=== PATIENT | female | born 1940 | race Caucasian/White ===

== ENCOUNTER 2016-06-25 15:29 | Emergency (ER) | payer MEDICARE, OTHER ==
[2016-06-25] MEDS ORDERED: DIAZEPAM 5 MG/1 ML TUBX IM ONE (15:46)
--- NOTE | 2016-06-25 15:50 | Emergency Department Record ---
History of Present Illness - General Chief complaint: Lower Extremity Pain Stated complaint: RESTLESS LEGS Time Seen by Provider: 06/25/16 15:46 Source: Patient Mode of Arrival: Ambulatory Limitations: No limitations - History of Present Illness Initial comments: 75 yo female presents to ED with a CC of worsening "restless leg syndrome" for the past several weeks. Patient reports that she has taken several medications in the past for her symptoms that have not helped (cinemet, neurontin). Patient reports that she is unable to sleep at night due to her symptoms. Patient has been seeing a neurologist for her symptoms at [facility] (Dr. Chopra), and that her PCP is not actively managing her symptoms. MD Complaint: Other Onset/Timin -: Week(s) Location: Bilateral, Lower Leg History of Same: Yes Quality: Other Consistency: Constant Improves with: Medication Worsens with: Nothing Associated Symptoms: Denies other symptoms - Related Data Home Medications Medication Instructions Recorded Confirmed Last Taken Baclofen 10 mg PO ASDIR 06/25/16 06/25/16 06/25/16 Carbidopa/Levodopa [Sinemet 25-100 1 each PO TID 06/25/16 06/25/16 Unknown mg Tablet] Carbidopa/Levodopa [Sinemet Cr 2 each PO QHS 06/25/16 06/25/16 Unknown 50-200 Tablet] Levothyroxine Sodium [Synthroid] 175 mcg PO DAILY 06/25/16 06/25/16 Unknown Lisinopril [Lisinopril] 5 mg PO DAILY 06/25/16 06/25/16 Unknown Simvastatin [Simvastatin] 10 mg PO DAILY 06/25/16 06/25/16 Unknown Allergies Allergy/AdvReac Type Severity Reaction Status Date / Time Penicillins Allergy RASH Verified 06/25/16 15:39 Travel Screening - Travel/Exposure Within Last 30 Days Have you traveled within the last 30 days?: No Review of Systems Constitutional: Denies: Chills, Fever, Malaise, Night sweats Eyes: Denies: Eye discharge, Eye pain ENT: Denies: Congestion, Ear pain, Epistaxis Respiratory: Denies: Cough, Dyspnea Cardiovascular: Denies: Chest pain, Dyspnea on exertion Endocrine: Denies: Fatigue Gastrointestinal: Denies: Abdominal pain, Nausea, Vomiting Genitourinary: Denies: Dysuria, Frequency, Hematuria Musculoskeletal: Denies: Arthralgia, Back pain, Gout, Joint swelling Skin: Denies: Bruising, Change in color Neurological: Denies: Abnormal gait, Confusion, Headache, Seizure Psychiatric: Denies: Anxiety Hematological/Lymphatic: Denies: Anemia, Blood Clots Past Medical History - SOCIAL HISTORY Smoking Status: Current every day smoker Alcohol Use: None Drug Use: None - RESPIRATORY Hx Respiratory Disorders: No Comment:: lung cancer in 1991 - CARDIOVASCULAR Hx Cardio Disorders: Yes Hx Hypertension: Yes Comment:: high cholesterol - NEURO Hx Neuro Disorders: Yes Comment:: RLS - GI Hx GI Disorders: Yes Hx of Polyps: Yes - Hx Genitourinary Disorders: No - ENDOCRINE Hx Endocrine Disorders: Yes Hx Thyroid Disease: Yes - MUSCULOSKELETAL Hx Musculoskeletal Disorders: No Comment:: chronic low back pain r/t stenosis - PSYCH Hx Psych Problems: No - HEMATOLOGY/ONCOLOGY Hx Hematology/Oncology Disorders: Yes Hx Cancer: Yes Hx Chemotherapy: No (breast & lung) Hx Radiation Therapy: Yes (last 1991) Family Medical History Any Significant Family History?: Yes Hx Alcohol Use: Father, Brother/Sister Hx Cancer: Father, Brother/Sister *Cancer Comment: bladder, lung, breast, stomach/esophagus Hx Diabetes: Grandparents Hx HTN: Mother Physical Exam - General General Appearance: Alert, Oriented x3, Cooperative, Mild distress, Anxious Limitations: No limitations - Head Head exam: Atraumatic, Normocephalic, Normal inspection Head exam detail: negative: Abrasion, Contusion, Pride's sign, General tenderness, Hematoma, Laceration - Eye Eye exam: Normal appearance. negative: Conjunctival injection, Periorbital swelling, Periorbital tenderness, Scleral icterus - ENT Ear exam: negative: Auricular hematoma, Auricular trauma Nasal Exam: negative: Active bleeding, Discharge, Dried blood, Foreign body Mouth exam: negative: Drooling, Laceration, Muffled voice, Tongue elevation - Neck Neck exam: Normal inspection. negative: Meningismus, Tenderness - Respiratory Respiratory exam: Normal lung sounds bilaterally. negative: Respiratory distress, Rhonchi, Stridor, Wheezes - Cardiovascular Cardiovascular Exam: Regular rate, Normal rhythm, Normal heart sounds - GI/Abdominal GI/Abdominal exam: Soft. negative: Rebound, Rigid, Tenderness - Rectal Rectal exam: Deferred - exam: Deferred - Extremities Extremities exam: Other (intermittent, benign tremors on examination). negative : Calf tenderness, Pedal edema, Tenderness - Back Back exam: Denies: CVA tenderness (R), CVA tenderness (L) - Neurological Neurological exam: Alert, Normal gait, Oriented X3 - Psychiatric Psychiatric exam: Anxious, Normal mood - Skin Skin exam: Normal color. negative: Abrasion Type of lesion: negative: abrasion Course Vital Signs 06/25/16 15:32 Temperature 98.1 F Pulse Rate 95 H Respiratory 20 Rate Blood Pressure 167/95 Pulse Ox 98 - Reevaluation(s) Reevaluation #1: 06/25/16 16:48 Patient re-evaluated, reports minimal improvement following Valium 10 mg IM. At this time, patient is asking to go home. Will refill her Carbidopa/Levadopa until her mail-order prescriptions arrive, and prescribe Lyrica for her RLS as well as this improved her symptoms previously. Patient appears stable for discharge at this time. All questions were answered at the time of discharge. Disposition Disposition: Discharge Clinical Impression: Restless leg syndrome Disposition: Home, Self-Care Condition: (2) Stable Instructions: Restless Legs Syndrome (ED) Additional Instructions: Return to ED if your symptoms worsen or if you have any concerns. Carbidopa/Levodopa as perescribed. Lyrica as prescribed. Follow-up with Dr. Walker in 1-3 days as directed. Forms: Patient Portal Access Time of Disposition: 16:44
== END 2016-06-25 16:59 | disposition home or self-care (01) ==
LOC: ER 15:29
DX: G25.81 Restless legs syndrome (principal)
CPT/HCPCS: 96372; 99283; J3360

== ENCOUNTER 2017-05-12 23:47 | Emergency (ER) | payer MEDICARE, OTHER ==
[2017-05-13] MEDS ORDERED: MORPHINE SULFATE 5 MG/ML PFS IVP ONE (00:18)
[2017-05-13] MEDS ORDERED: KETOROLAC 30 MG/ML VIAL IVP ONE (00:18)
[2017-05-13] MEDS ORDERED: PROMETHAZINE HCL 6.25 MG in 0.9 % SODIUM CHLORIDE 100ML 100 ML IVPB ONE (00:18)
--- NOTE | 2017-05-13 00:43 | Emergency Department Record ---
History of Present Illness - General Chief complaint: Pain Stated complaint: R ARM PAIN Time Seen by Provider: 05/13/17 00:08 Source: Patient Mode of Arrival: Ambulatory Limitations: No limitations - History of Present Illness Initial comments: pt is complaining of neck pain that radiates down to her r hand with tingling of 3 of her fingers. she states this all started after she played cards for 2 days. she had an mri in march which she states showed nothing but she states this pain is different MD Complaint: Extremity pain, Other Onset/Timin -: Days(s) Location: Right, Arm History of Same: Yes Radiation: Distal Severity scale (1-10): 7 Quality: Sharp, Stabbing Consistency: Constant, Intermittent, Getting worse Improves with: Rest Worsens with: Exertion, Palpation Associated Symptoms: Denies other symptoms - Related Data Previous Rx's Medication Instructions Recorded Gabapentin [Neurontin] 100 mg PO TID #14 capsule 05/13/17 Allergies Allergy/AdvReac Type Severity Reaction Status Date / Time Penicillins Allergy RASH Verified 06/25/16 15:39 Travel Screening - Travel/Exposure Within Last 30 Days Have you traveled within the last 30 days?: No - Travel Symptoms Symptom Screening: None Review of Systems Reviewed: No additional complaints except as noted below Constitutional: Reports: As per HPI. Denies: Chills, Fever, Malaise, Night sweats, Weakness, Weight change Eyes: Reports: As per HPI. Denies: Eye discharge, Eye pain, Photophobia, Vision change ENT: Reports: As per HPI. Denies: Congestion, Dental pain, Ear pain, Epistaxis , Hearing loss, Throat pain Respiratory: Reports: As per HPI. Denies: Cough, Dyspnea, Hemoptysis, Stridor, Wheezes Cardiovascular: Reports: As per HPI. Denies: Arrhythmia, Chest pain, Dyspnea on exertion, Edema, Murmurs, Orthopnea, Palpitations, Paroxysmal nocturnal dyspnea, Rheumatic Fever, Syncope Endocrine: Reports: As per HPI. Denies: Fatigue, Heat or cold intolerance, Polydipsia, Polyuria Gastrointestinal: Reports: As per HPI. Denies: Abdominal pain, Constipation, Diarrhea, Hematemesis, Hematochezia, Melena, Nausea, Vomiting Genitourinary: Reports: As per HPI. Denies: Abnormal menses, Discharge, Dyspareunia, Dysuria, Frequency, Hematuria, Incontinence, Retention, Urgency Musculoskeletal: Reports: As per HPI. Denies: Arthralgia, Back pain, Gout, Joint swelling, Myalgia, Neck pain Skin: Reports: As per HPI. Denies: Bruising, Change in color, Change in hair/ nails, Lesions, Pruritus, Rash Neurological: Reports: As per HPI. Denies: Abnormal gait, Confusion, Headache, Numbness, Paresthesias, Seizure, Tingling, Tremors, Vertigo, Weakness Psychiatric: Reports: As per HPI. Denies: Anxiety, Auditory hallucinations, Depression, Homicidal thoughts, Suicidal thoughts, Visual hallucinations Hematological/Lymphatic: Reports: As per HPI. Denies: Anemia, Blood Clots, Easy bleeding, Easy bruising, Swollen glands Past Medical History - SOCIAL HISTORY Smoking Status: Heavy tobacco smoker (>10/day) Alcohol Use: Rare Drug Use: None - RESPIRATORY Hx Respiratory Disorders: No Comment:: lung cancer in 1991 - CARDIOVASCULAR Hx Cardio Disorders: Yes Hx Hypertension: Yes Comment:: high cholesterol - NEURO Hx Neuro Disorders: Yes Comment:: RLS - GI Hx GI Disorders: Yes Hx of Polyps: Yes - Hx Genitourinary Disorders: No - ENDOCRINE Hx Endocrine Disorders: Yes Hx Thyroid Disease: Yes - MUSCULOSKELETAL Hx Musculoskeletal Disorders: No Comment:: chronic low back pain r/t stenosis - PSYCH Hx Psych Problems: No - HEMATOLOGY/ONCOLOGY Hx Hematology/Oncology Disorders: Yes Hx Cancer: Yes Hx Chemotherapy: No (breast & lung) Hx Radiation Therapy: Yes (last 1991) Family Medical History Any Significant Family History?: Yes Hx Alcohol Use: Father, Brother/Sister Hx Cancer: Father, Brother/Sister *Cancer Comment: bladder, lung, breast, stomach/esophagus Hx Diabetes: Grandparents Hx HTN: Mother Physical Exam - General General Appearance: Alert, Oriented x3, Cooperative, Mild distress - Head Head exam: Normal inspection - Eye Eye exam: Normal appearance, PERRL, EOMI Pupils: Normal accommodation - ENT ENT exam: Normal exam, Mucous membranes moist, Normal external ear exam, Normal orophraynx Ear exam: Normal external inspection. negative: External canal tenderness Nasal Exam: Normal inspection. negative: Discharge, Sinus tenderness Mouth exam: Normal external inspection, Tongue normal Teeth exam: Normal inspection. negative: Dental caries Throat exam: Normal inspection. negative: Tonsillar erythema, Tonsillar exudate - Neck Neck exam: Tenderness, Other (reproducible pain in r scm muscle). negative: Full ROM - Respiratory Respiratory exam: Normal lung sounds bilaterally. negative: Respiratory distress - Cardiovascular Cardiovascular Exam: Regular rate, Normal rhythm, Normal heart sounds - GI/Abdominal GI/Abdominal exam: Soft, Normal bowel sounds. negative: Tenderness - Rectal Rectal exam: Deferred - exam: Deferred - Extremities Extremities exam: Normal inspection, Full ROM, Normal capillary refill. negative: Tenderness - Back Back exam: Reports: Normal inspection, Full ROM. Denies: Muscle spasm, Rash noted, Tenderness - Neurological Neurological exam: Alert, CN II-XII intact, Normal gait, Oriented X3, Other ( tingling in 2,3,4 finger) - Psychiatric Psychiatric exam: Normal affect, Normal mood - Skin Skin exam: Dry, Intact, Normal color, Warm Course Vital Signs 05/12/17 05/12/17 23:51 23:59 Temperature 97.7 F Pulse Rate [ 70 Pulse Ox Probe] Respiratory 22 Rate Blood Pressure 150/76 [Right Arm] Pulse Ox 98 - Reevaluation(s) Reevaluation #1: 05/13/17 01:17 pt feels much better Disposition Disposition: Discharge Clinical Impression: Cervical radiculopathy Disposition: Home, Self-Care Condition: (1) Good Instructions: Cervical Radiculopathy (ED) Additional Instructions: follow up with family doctor. return sooner if worse. motrin with food. ice and moist heat to neck Prescriptions: Gabapentin [Neurontin] 100 mg PO TID #14 capsule Forms: Patient Portal Access Quality - Quality Measures Quality Measures: N/A - Blood Pressure Screening Does Patient Have Any of the Following: Active Dx of HTN Blood Pressure Classification: Hypertensive Reading Systolic Measurement: 150 Diastolic Measurement: 76 Screening for High Blood Pressure: Patient Exclusion, Hx of HTN [G9744]
[2017-05-13] MEDS ORDERED: GABAPENTIN 100 MG CAPSULE PO SCH (01:15)
--- NOTE | 2017-05-13 09:48 | CT SCAN REPORT ---
EXAM: CT OF THE CERVICAL SPINE WITHOUT CONTRAST HISTORY: NECK PAIN. TECHNIQUE: Sequential axial images were obtained through the cervical spine without intravenous contrast administration. Sagittal and coronal reformatted images were performed. FINDINGS: No evidence of fracture, subluxation or perched facet. Mild osteopenia. Mild degenerative change at C5-C6 and C6-C7 levels. There is mild neural foraminal narrowing at these levels. IMPRESSION: 1. SMALL FOCAL AREAS OF LUCENCY THROUGHOUT THE CERVICAL SPINE LIKELY RELATED TO OSTEOPENIA. LYTIC PROCESS NOT ENTIRELY EXCLUDED. 2. MILD DEGENERATIVE CHANGE AT C5-C6 AND C6-C7 LEVELS. THIS PRODUCES BILATERAL NEURAL FORAMINAL NARROWING. JOB NUMBER: [id number] [facility]
== END 2017-05-13 01:30 | disposition home or self-care (01) ==
LOC: ER 23:47
DX: M54.12 Radiculopathy, cervical region (principal); I10 Essential (primary) hypertension; F17.210 Nicotine dependence, cigarettes, uncomplicated
CPT/HCPCS: 99284 ×2; 96365; 96375; 72125; J1885; J2270; J2550

== ENCOUNTER 2018-03-28 19:58 | Observation (INO) | payer MEDICARE, OTHER ==
--- NOTE | 2018-03-28 20:10 | Emergency Department Record ---
History of Present Illness - General Chief Complaint: Recheck - Other Stated Complaint: NEED DARSHANA CHECKED, SENT BY HER DR Time Seen by Provider: 03/28/18 20:02 Source: Patient Mode of arrival: Ambulatory Limitations: No limitations - History of Present Illness Initial Comments: 77 yo female presents to ED for evaluation of her INR. Patient reports that her PCP called her and told her to come to the ED for evaluation as it was high. Patient reports that she was recently started on Coumadin for "blood clots in the chest". Patient denies bleeding with bruising her teeth, blood in the stool, headache symptoms or head injury, or hematuria symptoms. MD Complaint: Abnormal lab Onset/Timin -: Days(s) Description of Abnormal Result: High INR Symptoms Since Prior Visit: No new symptoms Associated Symptoms: None - Related Data Home Medications Medication Instructions Recorded Confirmed Last Taken Warfarin Sodium 5 mg PO DAILY 03/28/18 03/28/18 Unknown Allergies Allergy/AdvReac Type Severity Reaction Status Date / Time Penicillins Allergy RASH Verified 06/25/16 15:39 Review of Systems Constitutional: Denies: Chills, Fever, Malaise, Night sweats Eyes: Denies: Eye discharge, Eye pain ENT: Denies: Congestion, Ear pain, Epistaxis Respiratory: Denies: Cough, Dyspnea Cardiovascular: Denies: Chest pain, Dyspnea on exertion Endocrine: Denies: Fatigue, Heat or cold intolerance Gastrointestinal: Denies: Abdominal pain, Nausea, Vomiting Genitourinary: Denies: Hematuria, Incontinence, Retention Musculoskeletal: Denies: Arthralgia, Back pain Skin: Denies: Bruising, Change in color Neurological: Denies: Abnormal gait, Confusion, Headache, Seizure Psychiatric: Denies: Anxiety Hematological/Lymphatic: Reports: Blood Clots, Easy bleeding, Easy bruising. Denies: Anemia Past Medical History - SOCIAL HISTORY Smoking Status: Heavy tobacco smoker (>10/day) Drug Use: None - RESPIRATORY Hx Respiratory Disorders: No Comment:: lung cancer in 1991 - CARDIOVASCULAR Hx Cardio Disorders: Yes Hx Hypertension: Yes Comment:: high cholesterol - NEURO Hx Neuro Disorders: Yes Comment:: RLS - GI Hx GI Disorders: Yes Hx of Polyps: Yes - Hx Genitourinary Disorders: No - ENDOCRINE Hx Endocrine Disorders: Yes Hx Thyroid Disease: Yes - MUSCULOSKELETAL Hx Musculoskeletal Disorders: No Comment:: chronic low back pain r/t stenosis - PSYCH Hx Psych Problems: No - HEMATOLOGY/ONCOLOGY Hx Hematology/Oncology Disorders: Yes Hx Cancer: Yes Hx Chemotherapy: No (breast & lung) Hx Radiation Therapy: Yes (last 1991) Family Medical History Hx Alcohol Use: Father, Brother/Sister Hx Cancer: Father, Brother/Sister *Cancer Comment: bladder, lung, breast, stomach/esophagus Hx Diabetes: Grandparents Hx HTN: Mother Physical Exam - General General Appearance: Alert, Oriented x3, Cooperative, No acute distress Limitations: No limitations - Head Head exam: Atraumatic, Normocephalic, Normal inspection Head exam detail: negative: Abrasion, Contusion, Pride's sign, General tenderness, Hematoma, Laceration - Eye Eye exam: Normal appearance. negative: Conjunctival injection, Periorbital swelling, Periorbital tenderness, Scleral icterus - ENT Ear exam: negative: Auricular hematoma, Auricular trauma Nasal Exam: negative: Active bleeding, Discharge, Dried blood, Foreign body Mouth exam: negative: Drooling, Laceration, Muffled voice, Tongue elevation - Neck Neck exam: Normal inspection. negative: Meningismus, Tenderness - Respiratory Respiratory exam: Normal lung sounds bilaterally. negative: Rales, Respiratory distress, Rhonchi, Stridor - Cardiovascular Cardiovascular Exam: Regular rate, Normal rhythm, Normal heart sounds - GI/Abdominal GI/Abdominal exam: Soft. negative: Rebound, Rigid, Tenderness - Rectal Rectal exam: Deferred - exam: Deferred - Extremities Extremities exam: Normal inspection. negative: Pedal edema, Tenderness - Back Back exam: Denies: CVA tenderness (R), CVA tenderness (L) - Neurological Neurological exam: Alert, Normal gait, Oriented X3 - Psychiatric Psychiatric exam: Normal affect, Normal mood - Skin Skin exam: Normal color. negative: Abrasion Type of lesion: negative: abrasion Course Vital Signs 03/28/18 20:03 Temperature 98.0 F Pulse Rate [ 96 H Pulse Ox Probe] Respiratory 16 Rate Blood Pressure 91/64 [Left Arm] Pulse Ox 95 - Reevaluation(s) Reevaluation #1: 03/28/18 20:50 Laboratory studies reviewed, CBC appears normal. INR 9.4. Vitamin K 5 mg ordered, will admit for observation and reassessment of the INR in the morning. Case was discussed with Jessica Juan, will accept admission at this time. Medical Decision Making - Lab Data Result diagrams: 03/28/18 20:18 Disposition Disposition: Admit Clinical Impression: Warfarin-induced coagulopathy Disposition: Still a Patient at [facility] Decision to Admit: Admit from ER Decision to Admit Date: 03/28/18 Decision to Admit Time: 20:53 Condition: (2) Stable Forms: Patient Portal Access Time of Disposition: 20:53 Quality - Quality Measures Quality Measures: N/A - Blood Pressure Screening Does Patient Have Any of the Following: No Blood Pressure Classification: Normal BP Reading Systolic Measurement: 91 Diastolic Measurement: 64 Screening for High Blood Pressure: < Normal BP, F/U Not Required > [G8783]
[2018-03-28 20:24] LABS: HEMATOCRIT 37.4 % (35.0-47.0); HEMOGLOBIN 12.2 gm/dl (11.6-16.0); MEAN CORPUSCULAR HGB CONC 32.6 g/dl (32-36); MEAN PLATELET VOLUME 9.2 fl (7.4-10.4); PLATELET COUNT 316 K/uL (130-400); RED CELL DISTRIBUTION WIDTH 14.7 % (11.5-14.5); WHITE BLOOD COUNT W/O DIFF 5.3 K/uL (4.2-12.2)
[2018-03-28 20:44] LABS: INR 9.4; PROTHROMBIN TIME (PATIENT) 89.2 SECONDS (9.5-12.1)
[2018-03-28] MEDS ORDERED: PHYTONADIONE 10 MG/ML AMPUL PO ONE (20:45)
[2018-03-28] MEDS ORDERED: Non-Formulary MISC (Carbidopa/Levodopa [Sinemet Cr 50-200 Tablet] 1 EACH) PO PRN (22:19)
[2018-03-29 06:14] LABS: HEMATOCRIT 34.3 % (35.0-47.0); HEMOGLOBIN 10.7 gm/dl (11.6-16.0); MEAN CELL VOLUME 90.3 fl (81-97); MEAN CORPUSCULAR HGB CONC 31.2 g/dl (32-36); MEAN PLATELET VOLUME 9.4 fl (7.4-10.4); PLATELET COUNT 260 K/uL (130-400); RED CELL DISTRIBUTION WIDTH 14.8 % (11.5-14.5); WHITE BLOOD COUNT W/O DIFF 4.2 K/uL (4.2-12.2)
[2018-03-29 06:18] LABS: MEAN CORPUSCULAR HEMOGLOBIN 28.1 pg (27-33)
[2018-03-29 06:24] LABS: INR 2.4; PROTHROMBIN TIME (PATIENT) 23.4 SECONDS (9.5-12.1)
[2018-03-29 06:34] LABS: ALB/GLOB RATIO 1.7 (1.1-1.8); ALBUMIN 3.8 g/dL (4.0-5.0); ALKALINE PHOSPHATASE 73 U/L (35-104); ALT/SGPT < 5 U/L (<33); AST/SGOT 6 U/L (10.0-35.0); BLOOD UREA NITROGEN 12 mg/dL (8-23); CREATININE 0.4 mg/dL (0.5-0.9); EST GLOMERULAR FILTRATION RATE > 60 mL/min; GLUCOSE,RANDOM 106 mg/dL (74-109)
[2018-03-29] MEDS ORDERED: LEVOTHYROXINE SODIUM 100 MCG TABLET PO SCH (07:00)
--- NOTE | 2018-03-29 09:49 | History & Physical ---
History of Present Illness - Date of Service Date of Service for History & Physical: 03/29/18 - History of Present Illness Admitting Diagnosis: Warfarin-induced coagulopathy History of Present Illness: 77 year old female presented to ED for evaluation of her INR. Patient states that her PCP had called her to notify her of an INR of 9.4 previously that day, and to go to the ED for further treatment. Patient was started on coumadin 2 weeks ago due to "blood clots in her chest" as a result of current lymphoma. Patient states her PCP has been adjusting her coumadin dose, and she was taking 7mg , Sat, and of this week. States she did not have a dose on Saturday. Patient denied any bleeding with brushing her teeth, blood in the stool , headache symptoms, head injury, or hematuria symptoms. Patient had no additional complaints. Past medical history includes history of breast and lung cancer, high cholesterol, HTN, thyroid disorder, anxiety, and current lymphoma. PCP: Dr. Magda Walker ED Course: INR 9.4, hgb 12.2 Vit K 5mg PO Vital Signs: Temp 98, HR 96, RR 16, BP 91/64, Pulse ox 95% RA 03/29/18: Patient A&O x 4, resting comfortably in bed with at bedside. Patient has no complaints today. No further signs of bleeding this morning. INR has normalized, 2.4 this morning. Discussed appropriate coumadin administration, taking it at the same time daily, and the effects of dietary intake on INR levels with coumadin. Patient verbalized understanding, had been following these recommendations prior to arrival. Travel Screening - Travel/Exposure Within Last 30 Days Have you traveled within the last 30 days?: No - Travel/Exposure Within Last Year Have you traveled outside the [place] in the last year?: No - Additonal Travel Details Have you been exposed to anyone with a communicable illness?: No - Travel Symptoms Symptom Screening: None Review of Systems Reviewed: No additional complaints except as noted below Constitutional: Denies: Chills, Fever, Malaise, Night sweats Eyes: Denies: Eye discharge, Eye pain ENT: Denies: Congestion, Ear pain, Epistaxis Respiratory: Denies: Cough, Dyspnea Cardiovascular: Denies: Chest pain, Dyspnea on exertion Endocrine: Denies: Fatigue, Heat or cold intolerance Gastrointestinal: Denies: Abdominal pain, Nausea, Vomiting Genitourinary: Denies: Hematuria, Incontinence, Retention Musculoskeletal: Denies: Arthralgia, Back pain Skin: Denies: Bruising, Change in color Neurological: Denies: Abnormal gait, Confusion, Headache, Seizure Psychiatric: Denies: Anxiety Hematological/Lymphatic: Reports: Blood Clots, Easy bleeding, Easy bruising. Denies: Anemia Past Medical History - SOCIAL HISTORY Smoking Status: Heavy tobacco smoker (>10/day) Alcohol Use: None Drug Use: None - RESPIRATORY Hx Respiratory Disorders: No Hx COPD: Yes Hx Pulmonary Embolism: (unsure) Comment:: lung cancer in 1991 - CARDIOVASCULAR Hx Cardio Disorders: Yes Hx Hypertension: Yes Comment:: high cholesterol - NEURO Hx Neuro Disorders: Yes Hx Dizziness: Yes Hx Parkinson's Disease: Yes Comment:: RLS - GI Hx GI Disorders: Yes Hx Ulcer: Yes Hx of Polyps: Yes - Hx Genitourinary Disorders: No - ENDOCRINE Hx Endocrine Disorders: Yes Hx Thyroid Disease: Yes - MUSCULOSKELETAL Hx Musculoskeletal Disorders: Yes Comment:: chronic low back pain r/t stenosis - PSYCH Hx Psych Problems: No Hx Anxiety: Yes Hx Depression: Yes Feelings of Hopelessness: Yes - HEMATOLOGY/ONCOLOGY Hx Hematology/Oncology Disorders: Yes Hx Cancer: Yes Hx Chemotherapy: No (breast & lung) Hx Radiation Therapy: Yes (last 1991) Hx Clotting Problems: Yes Hx Blood Transfusions: No Family Medical History Any Significant Family History?: Yes Hx Alcohol Use: Father, Brother/Sister Hx Cancer: Father, Brother/Sister *Cancer Comment: bladder, lung, breast, stomach/esophagus Hx Diabetes: Grandparents Hx HTN: Mother H&P Meds/Allergies - Allergies Allergies: Allergies Allergy/AdvReac Type Severity Reaction Status Date / Time Penicillins Allergy RASH Verified 06/25/16 15:39 - Home Medications Home Medications Medication Instructions Recorded Confirmed Last Taken Warfarin Sodium 5 mg PO DAILY 03/28/18 03/28/18 Unknown - Active Medications Active Medications: Current Medications Levothyroxine Sodium (Synthroid) 100 mcg PO DAILYTHY OLGA Last Admin: 03/29/18 06:36 Dose: 100 mcg Lisinopril (Zestril) 5 mg PO DAILY OLGA Non-Formulary Medication (Carbidopa/Levodopa [Sinemet Cr 50-200 Tablet]) 1 each PO QHS PRN PRN Reason: Pain - General Simvastatin (Zocor) 10 mg PO DAILY OLGA Physical Exam - Vital Signs Vital Signs: Vital Signs - Last 24 Hrs Temp Pulse Resp BP Pulse Ox 03/28/18 22:20 97.5 F L 74 18 131/63 99 03/28/18 20:03 98.0 F 96 H 16 91/64 95 - General General Appearance: Alert, Oriented x3, Cooperative, No acute distress Limitations: No limitations - Head Head exam: Atraumatic, Normocephalic, Normal inspection Head exam detail: negative: Abrasion, Contusion, Pride's sign, General tenderness, Hematoma, Laceration - Eye Eye exam: Normal appearance. negative: Conjunctival injection, Periorbital swelling, Periorbital tenderness, Scleral icterus - ENT ENT exam: Normal exam Ear exam: negative: Auricular hematoma, Auricular trauma Nasal Exam: negative: Active bleeding, Discharge, Dried blood, Foreign body Mouth exam: Normal external inspection, Tongue normal. negative: Drooling, Laceration, Muffled voice, Tongue elevation - Neck Neck exam: Normal inspection. negative: Meningismus, Tenderness - Respiratory Respiratory exam: Normal lung sounds bilaterally. negative: Rales, Respiratory distress, Rhonchi, Stridor - Cardiovascular Cardiovascular Exam: Regular rate, Normal rhythm, Normal heart sounds Peripheral Pulses: 2+: Radial (R), Radial (L), Dorsalis Pedis (R), Dorsalis Pedis (L) - GI/Abdominal GI/Abdominal exam: Soft. negative: Rebound, Rigid, Tenderness - Rectal Rectal exam: Deferred - exam: Deferred - Extremities Extremities exam: Normal inspection. negative: Pedal edema, Tenderness - Back Back exam: Denies: CVA tenderness (R), CVA tenderness (L) - Neurological Neurological exam: Alert, Normal gait, Oriented X3 - Psychiatric Psychiatric exam: Normal affect, Normal mood - Skin Skin exam: Normal color. negative: Abrasion Type of lesion: negative: abrasion Results - Labs Result Diagrams: 03/29/18 05:50 03/29/18 05:50 Labs Last 24 Hours: Laboratory Results - last 24 hr 03/28/18 03/28/18 03/28/18 20:18 20:18 23:17 WBC 5.3 RBC 4.20 Hgb 12.2 Hct 37.4 MCV 89.0 MCH 29.0 MCHC 32.6 RDW 14.7 H Plt Count 316 MPV 9.2 Neutrophils % 57.0 Band Neutrophils % 0.0 Eosinophils % Not Reportable Basophils % Not Reportable Lymphocytes 28.0 Monocytes 13.0 H Basophils 2.0 Metamyelocytes Myelocytes Promyelocytes Nucleated RBCs Differential Comment Hypersegmented Polys Plasma Cells Other Cell Type Toxic Granulation Dohle Bodies Shelly Rods Platelet Estimate RBC Morphology Polychromasia Hypochromasia Poikilocytosis Basophilic Stippling Anisocytosis Microcytosis Macrocytosis Spherocytes Sickle Cells Target Cells Tear Drop Cells Ovalocytes Stomatocytes Helmet Cells [place] Bodies [place] Rings Jesse Cells Acanthocytes (Spur) Rouleaux Schistocytes Morphology Comment Eosinophil Count 0.0 PT 89.2 H* INR 9.4 H* Sodium Cancelled Potassium Cancelled Chloride Cancelled Carbon Dioxide Cancelled Anion Gap Cancelled BUN Cancelled Creatinine Cancelled Estimated GFR Cancelled Random Glucose Cancelled Calcium Cancelled Total Bilirubin Cancelled AST Cancelled ALT Cancelled Alkaline Phosphatase Cancelled Total Protein Cancelled Albumin Cancelled Globulin Cancelled Albumin/Globulin Ratio Cancelled 03/29/18 03/29/18 03/29/18 05:50 05:50 05:50 WBC 4.2 RBC 3.80 Hgb 10.7 L Hct 34.3 L MCV 90.3 MCH 28.1 MCHC 31.2 L RDW 14.8 H Plt Count 260 MPV 9.4 Neutrophils % 64.0 Band Neutrophils % 0.0 Eosinophils % Not Reportable Basophils % Not Reportable Lymphocytes 20.0 Monocytes 16.0 H Basophils 0.0 Metamyelocytes Cancelled Myelocytes Cancelled Promyelocytes Cancelled Nucleated RBCs Cancelled Differential Comment Cancelled Hypersegmented Polys Cancelled Plasma Cells Cancelled Other Cell Type Cancelled Toxic Granulation Cancelled Dohle Bodies Cancelled Shelly Rods Cancelled Platelet Estimate Cancelled RBC Morphology Cancelled Polychromasia Cancelled Hypochromasia Cancelled Poikilocytosis Cancelled Basophilic Stippling Cancelled Anisocytosis Cancelled Microcytosis Cancelled Macrocytosis Cancelled Spherocytes Cancelled Sickle Cells Cancelled Target Cells Cancelled Tear Drop Cells Cancelled Ovalocytes Cancelled Stomatocytes Cancelled Helmet Cells Cancelled [place] Bodies Cancelled [place] Rings Cancelled Jesse Cells Cancelled Acanthocytes (Spur) Cancelled Rouleaux Cancelled Schistocytes Cancelled Morphology Comment Cancelled Eosinophil Count 0.0 PT 23.4 H INR 2.4 Sodium 142 Potassium 3.8 Chloride 108 H Carbon Dioxide 23.0 Anion Gap 11.0 BUN 12 Creatinine 0.4 L Estimated GFR > 60 Random Glucose 106 Calcium 9.0 Total Bilirubin 0.50 AST 6 L ALT < 5 Alkaline Phosphatase 73 Total Protein 6.0 L Albumin 3.8 L Globulin 2.2 Albumin/Globulin Ratio 1.7 VTE H&P Assessment - Risk for VTE Risk for VTE: No Risk Level: Low Risk Assessment Date: 03/29/18 Risk Assessment Time: 09:52 VTE Orders Placed or Will Be Placed: No VTE Reason for No Prophylaxis: Contraindicated (current coumadin therapy) Plan - Detailed Diagnosis and Plan (1) Warfarin-induced coagulopathy Current Visit: Yes Status: Acute Base Code: D68.32 - HEMORRHAGIC DISORD D/T EXTRINSIC CIRCULATING ANTICOAGULANTS; T45.515A - ADVERSE EFFECT OF ANTICOAGULANTS, INITIAL ENCOUNTER Comment: 03/29/18: Patient was started on coumadin therapy 2 weeks ago due to "blood clots in the chest" as a result of current lymphoma. Patient was taking 7mg of Coumadin , Sat, and . She was called by her PCP on Saturday to notify her of INR of 9.4. -Vit K 5mg PO in ED -No signs of bleeding at this time -INR of 2.4 today -Consulted pharmacy for appropriate coumadin dosing, patient to take 4mg today, then 3 mg daily after that and recheck INR on Saturday (2) DVT prophylaxis Current Visit: Yes Status: Acute Base Code: [id number] - Comment: 03/29/18: No need for further prophylaxis as patient is currently therapeutic with coumadin (3) DNR (do not resuscitate) Current Visit: Yes Status: Acute Base Code: Z66 - DO NOT RESUSCITATE Comment: 03/29/18: Patient wishes to be DNR status
[2018-03-29] MEDS ORDERED: SIMVASTATIN 10MG TABLET PO SCH (10:00)
[2018-03-29] MEDS ORDERED: LISINOPRIL 5 MG TABLET PO SCH (10:00)
--- NOTE | 2018-03-29 10:02 | Discharge Summary ---
Providers Discharge Summary Date: 03/29/18 Date of admission: 03/28/18 22:15 Expected Date of Discharge: 03/29/18 Attending physician: GARFIELD PRICE Primary care physician: MAGDA BERG D.O. Physical Exam - Vital Signs Vital Signs: Vital Signs - Last 24 Hrs Temp Pulse Resp BP Pulse Ox 03/28/18 22:20 97.5 F L 74 18 131/63 99 03/28/18 20:03 98.0 F 96 H 16 91/64 95 - General General Appearance: Alert, Oriented x3, Cooperative, No acute distress Limitations: No limitations - Head Head exam: Atraumatic, Normocephalic, Normal inspection Head exam detail: negative: Abrasion, Contusion, Pride's sign, General tenderness, Hematoma, Laceration - Eye Eye exam: Normal appearance. negative: Conjunctival injection, Periorbital swelling, Periorbital tenderness, Scleral icterus - ENT ENT exam: Normal exam Ear exam: negative: Auricular hematoma, Auricular trauma Nasal Exam: negative: Active bleeding, Discharge, Dried blood, Foreign body Mouth exam: Normal external inspection, Tongue normal. negative: Drooling, Laceration, Muffled voice, Tongue elevation - Neck Neck exam: Normal inspection. negative: Meningismus, Tenderness - Respiratory Respiratory exam: Normal lung sounds bilaterally. negative: Rales, Respiratory distress, Rhonchi, Stridor - Cardiovascular Cardiovascular Exam: Regular rate, Normal rhythm, Normal heart sounds Peripheral Pulses: 2+: Radial (R), Radial (L), Dorsalis Pedis (R), Dorsalis Pedis (L) - GI/Abdominal GI/Abdominal exam: Soft. negative: Rebound, Rigid, Tenderness - Rectal Rectal exam: Deferred - exam: Deferred - Extremities Extremities exam: Normal inspection. negative: Pedal edema, Tenderness - Back Back exam: Denies: CVA tenderness (R), CVA tenderness (L) - Neurological Neurological exam: Alert, Normal gait, Oriented X3 - Psychiatric Psychiatric exam: Normal affect, Normal mood - Skin Skin exam: Normal color. negative: Abrasion Type of lesion: negative: abrasion Hospitalization - Hospitalization Admission Diagnosis: Warfarin-induced coagulopathy - Problem List/Discharge Diagnosis (1) Warfarin-induced coagulopathy Current Visit: Yes Status: Acute Base Code: D68.32 - HEMORRHAGIC DISORD D/T EXTRINSIC CIRCULATING ANTICOAGULANTS; T45.515A - ADVERSE EFFECT OF ANTICOAGULANTS, INITIAL ENCOUNTER Comment: 03/29/18: Patient was started on coumadin therapy 2 weeks ago due to "blood clots in the chest" as a result of current lymphoma. Patient was taking 7mg of Coumadin , Sat, and . She was called by her PCP on Saturday to notify her of INR of 9.4. -Vit K 5mg PO in ED -No signs of bleeding at this time -INR of 2.4 today -Consulted pharmacy for appropriate coumadin dosing, patient to take 4mg today, then 3 mg daily after that and recheck INR on Saturday with PCP (2) DVT prophylaxis Current Visit: Yes Status: Acute Base Code: [id number] - Comment: 03/29/18: No need for further prophylaxis as patient is currently therapeutic with coumadin (3) DNR (do not resuscitate) Current Visit: Yes Status: Acute Base Code: Z66 - DO NOT RESUSCITATE Comment: 03/29/18: Patient wishes to be DNR status - Hospitalization Course Disposition: Home, Self-Care Hospital Course: 77 year old female presented to ED for evaluation of her INR. Patient states that her PCP had called her to notify her of an INR of 9.4 previously that day, and to go to the ED for further treatment. Patient was started on coumadin 2 weeks ago due to "blood clots in her chest" as a result of current lymphoma. Patient states her PCP has been adjusting her coumadin dose, and she was taking 7mg , Sat, and of this week. States she did not have a dose on Saturday. Patient denied any bleeding with brushing her teeth, blood in the stool , headache symptoms, head injury, or hematuria symptoms. Patient had no additional complaints. Past medical history includes history of breast and lung cancer, high cholesterol, HTN, thyroid disorder, anxiety, and current lymphoma. PCP: Dr. Magda Berg ED Course: INR 9.4, hgb 12.2 Vit K 5mg PO Vital Signs: Temp 98, HR 96, RR 16, BP 91/64, Pulse ox 95% RA 03/29/18: Patient A&O x 4, resting comfortably in bed with at bedside. Patient has no complaints today. No further signs of bleeding this morning. INR has normalized, 2.4 this morning. Discussed appropriate coumadin administration, taking it at the same time daily, and the effects of dietary intake on INR levels with coumadin. Patient verbalized understanding, had been following these recommendations prior to arrival. Consulted pharmacy for appropriate coumadin dosing. Patient to take 4mg today, followed by 3mg daily after that. Patient to follow-up with PCP on Saturday for further INR testing. Abnormal Labs: Abnormal Lab Results 03/28/18 03/28/18 03/29/18 Range/Units 20:18 20:18 05:50 Hgb (11.6-16.0) gm/dl Hct (35.0-47.0) % MCHC (32-36) g/dl RDW 14.7 H (11.5-14.5) % Monocytes 13.0 H (0-9) % PT 89.2 H* 23.4 H (9.5-12.1) SECONDS INR 9.4 H* Chloride (98-107) mmol/L Creatinine (0.5-0.9) mg/dL AST (10.0-35.0) U/L Total Protein (6.6-8.7) g/dL Albumin (4.0-5.0) g/dL 03/29/18 03/29/18 Range/Units 05:50 05:50 Hgb 10.7 L (11.6-16.0) gm/dl Hct 34.3 L (35.0-47.0) % MCHC 31.2 L (32-36) g/dl RDW 14.8 H (11.5-14.5) % Monocytes 16.0 H (0-9) % PT (9.5-12.1) SECONDS INR Chloride 108 H (98-107) mmol/L Creatinine 0.4 L (0.5-0.9) mg/dL AST 6 L (10.0-35.0) U/L Total Protein 6.0 L (6.6-8.7) g/dL Albumin 3.8 L (4.0-5.0) g/dL Condition at Discharge: (2) Stable VTE Discharge VTE Reason For No Overlap Therapy: Not Indicated Discharge Medications - Discharge Medications Prescriptions: Warfarin Sodium 3 mg PO DAILY #3 tablet Warfarin Sodium 4 mg PO DAILY #1 tablet Home Medications: Ambulatory Orders Carbidopa/Levodopa [Sinemet Cr 50-200 Tablet] 1 each PO QHS PRN 06/25/16 [Last Taken Unknown] Levothyroxine Sodium [Synthroid] 100 mcg PO DAILY 06/25/16 [Last Taken Unknown] Lisinopril 5 mg PO DAILY 06/25/16 [Last Taken Unknown] Simvastatin 10 mg PO DAILY 06/25/16 [Last Taken Unknown] Warfarin Sodium 3 mg PO DAILY #3 tablet 03/29/18 [Last Taken Unknown] Warfarin Sodium 4 mg PO DAILY #1 tablet 03/29/18 [Last Taken Unknown] Discharge Plan - Discharge Instructions Activity at Discharge: Resume Usual Activities As Tolerated Diet at Discharge: Regular Diet Additional Instructions: 03/29/18: Take 4mg Coumadin 03/30/18: Take 3mg Coumadin. Continue taking 3mg daily until instructed to change by Dr. Berg Follow-up with Dr. Berg on Saturday to have INR checked again Quality Measures - Quality Measures Quality Measures: Advance Directives, Documentation of Current Medications in Medical Record, Elder Maltreatment Screen and Follow-Up Plan, Screening for High Blood Pressure and F/U Documented - Current Medications Quality Measure: Measure #130: Documentation of Current Medications Documentation of Current Medications: <Current Medications Documented/Reviewed> [[id number]] - Blood Pressure Screening Quality Measure: Screening for High Blood Pressure and Follow-Up Documented Does Patient Have Any of the Following: Active Dx of HTN Blood Pressure Classification: Pre-Hypertensive BP Reading Systolic Measurement: 131 Diastolic Measurement: 63 Screening for High Blood Pressure: Patient Exclusion, Hx of HTN [G9744] - Advance Directives Quality Measure: Measure #47: Care Plan Advance Directives Established: Yes Advance Directives Information Provided To Patient: No Advance Directives on File: No (at [place]) Living Will: Yes Power of Patient Care Secretary: No Advance Care Planning: <Care Plan/Decision Maker Documented; Discussed & Documented> [[id number]] - Elder Abuse Suspicion Index Screening: Elder Abuse Suspicion Index Screening Rely on people for bathing, dressing, shopping, banking, etc: No Prevented from getting food, clothes, medication, etc: No Made to feel shamed or threatened by someone: No Forced to sign papers or use money against will: No Feel afraid, touched in ways not wanted or hurt physically: No Poor eye contact, withdrawn, malnourished, cuts or bruises: No Screening Result: Negative result EASI Reference Information: Cele WATSON, Festus C, Lillian D, Adelaide Myers.Development and validation of a tool to assist physicians identification of elder abuse: The Elder Abuse Suspicion Index (EASI ). Journal of Elder Abuse and Neglect, 2008; 20 (3): 276-300. - Elder Maltreatment Screen Quality Measures: Elder Maltreatment Screen and Follow-Up Plan Elder Maltreatment Screen: <Negative, No Follow-Up Plan Required> [[id number]]
== END 2018-03-29 11:01 | disposition home or self-care (01) ==
LOC: ER 19:58 → MEDSURG 22:15
PROVIDERS: ADMIT Internal Medicine; ATTEND Internal Medicine
DX: D68.32 Hemorrhagic disorder due to extrinsic circulating anticoagulants (principal); C85.90 Non-Hodgkin lymphoma, unspecified, unspecified site; I10 Essential (primary) hypertension; E78.00 Pure hypercholesterolemia, unspecified; E03.9 Hypothyroidism, unspecified; M54.5 Low back pain; G25.81 Restless legs syndrome; F17.210 Nicotine dependence, cigarettes, uncomplicated; Z85.3 Personal history of malignant neoplasm of breast; Z85.118 Personal history of other malignant neoplasm of bronchus and lung; Z66 Do not resuscitate
CPT/HCPCS: 85610 ×2; 80053; 85027 ×2; G0378 ×2; J3490; 99220; 99285

== ENCOUNTER 2018-07-19 15:09 | Emergency (ER) | payer MEDICARE, OTHER ==
[2018-07-19 15:41] LABS: BASO % 0.6 % (0-6); EOS % 1.3 % (0-6); GRAN % 78.3 % (47-80); HEMATOCRIT 38.9 % (35.0-47.0); HEMOGLOBIN 12.5 gm/dl (11.6-16.0); LYMPH % 7.1 % (16-45); MEAN CELL VOLUME 94.4 fl (81-97); MEAN CORPUSCULAR HEMOGLOBIN 30.3 pg (27-33); MEAN CORPUSCULAR HGB CONC 32.1 g/dl (32-36); MEAN PLATELET VOLUME 9.6 fl (7.4-10.4); MONO % 12.7 % (0-9); PLATELET COUNT 274 K/uL (130-400); RED BLOOD COUNT 4.12 M/uL (3.80-5.40); RED CELL DISTRIBUTION WIDTH 16.7 % (11.5-14.5); WHITE BLOOD COUNT W/O DIFF 6.2 K/uL (4.2-12.2)
--- NOTE | 2018-07-19 15:45 | Emergency Department Record ---
History of Present Illness - General Chief Complaint: Numbness Stated Complaint: STROKE LIKE SYMPTOMS Time Seen by Provider: 07/19/18 15:24 Source: Patient Mode of Arrival: Wheelchair Limitations: No limitations - History of Present Illness Initial Comments: pt states she in the last hour had a red spot in her vision which has resolved and a shaking of her hand that she could not control. 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 she is getting radiation for lung cancer. Onset/Timin -: Hour(s) Location: Right arm History of same: No Place: Home Improves With: None Worsens With: None Associated Symptoms: Denies other symptoms - [place] Coma Scale Eye Response: (4) Open spontaneously Motor Response: (6) Obeys commands Verbal Response: (5) Oriented [place] Total: 15 - Symptoms of Stroke Onset of Symptoms Date: 07/19/18 Onset of Symptoms Time: 14:00 Symptoms of stroke: Dizziness, Muscle Weakness - Related Data Home Medications: Home Medications Medication Instructions Recorded Confirmed Last Taken Morphine Sulfate 15 mg PO Q4H 07/19/18 07/19/18 07/19/18 Previous Rx's Medication Instructions Recorded Warfarin Sodium 3 mg PO DAILY #3 tablet 03/29/18 Allergies/Adverse Reactions: Allergies Allergy/AdvReac Type Severity Reaction Status Date / Time Penicillins Allergy RASH Verified 07/19/18 15:20 Travel Screening - Travel/Exposure Within Last 30 Days Have you traveled within the last 30 days?: No Review of Systems Reviewed: No additional complaints except as noted below Constitutional: Reports: As per HPI. Denies: Chills, Fever, Malaise, Night sweats, Weakness, Weight change Eyes: Reports: As per HPI. Denies: Eye discharge, Eye pain, Photophobia, Vision change ENT: Reports: As per HPI. Denies: Congestion, Dental pain, Ear pain, Epistaxis , Hearing loss, Throat pain Respiratory: Reports: As per HPI. Denies: Cough, Dyspnea, Hemoptysis, Stridor, Wheezes Cardiovascular: Reports: As per HPI. Denies: Arrhythmia, Chest pain, Dyspnea on exertion, Edema, Murmurs, Orthopnea, Palpitations, Paroxysmal nocturnal dyspnea, Rheumatic Fever, Syncope Endocrine: Reports: As per HPI. Denies: Fatigue, Heat or cold intolerance, Polydipsia, Polyuria Gastrointestinal: Reports: As per HPI. Denies: Abdominal pain, Constipation, Diarrhea, Hematemesis, Hematochezia, Melena, Nausea, Vomiting Genitourinary: Reports: As per HPI. Denies: Abnormal menses, Discharge, Dyspareunia, Dysuria, Frequency, Hematuria, Incontinence, Retention, Urgency Musculoskeletal: Reports: As per HPI. Denies: Arthralgia, Back pain, Gout, Joint swelling, Myalgia, Neck pain Skin: Reports: As per HPI. Denies: Bruising, Change in color, Change in hair/ nails, Lesions, Pruritus, Rash Neurological: Reports: As per HPI. Denies: Abnormal gait, Confusion, Headache, Numbness, Paresthesias, Seizure, Tingling, Tremors, Vertigo, Weakness Psychiatric: Reports: As per HPI. Denies: Anxiety, Auditory hallucinations, Depression, Homicidal thoughts, Suicidal thoughts, Visual hallucinations Hematological/Lymphatic: Reports: As per HPI. Denies: Anemia, Blood Clots, Easy bleeding, Easy bruising, Swollen glands Past Medical History - SOCIAL HISTORY Smoking Status: Current every day smoker Alcohol Use: None Drug Use: None - RESPIRATORY Hx Respiratory Disorders: Yes Hx COPD: Yes Comment:: lung cancer in 1991 - CARDIOVASCULAR Hx Cardio Disorders: Yes Hx Hypertension: Yes Comment:: high cholesterol - NEURO Hx Neuro Disorders: Yes Hx Dizziness: Yes Hx Parkinson's Disease: Yes Comment:: RLS - GI Hx GI Disorders: Yes Hx Ulcer: Yes Hx of Polyps: Yes - Hx Genitourinary Disorders: No - ENDOCRINE Hx Endocrine Disorders: Yes Hx Thyroid Disease: Yes - MUSCULOSKELETAL Hx Musculoskeletal Disorders: Yes Comment:: chronic low back pain r/t stenosis - PSYCH Hx Psych Problems: Yes Hx Anxiety: Yes Hx Depression: Yes - HEMATOLOGY/ONCOLOGY Hx Hematology/Oncology Disorders: Yes Hx Cancer: Yes Hx Chemotherapy: No (breast & lung) Hx Radiation Therapy: Yes (last 1991) Hx Blood Transfusions: No Family Medical History Any Significant Family History?: Yes Hx Alcohol Use: Father, Brother/Sister Hx Cancer: Father, Brother/Sister *Cancer Comment: bladder, lung, breast, stomach/esophagus Hx Diabetes: Grandparents Hx HTN: Mother Physical Exam - General General Appearance: Alert, Oriented x3, Cooperative, Mild distress - Head Head exam: Normal inspection - Eye Eye exam: Normal appearance, PERRL, EOMI Pupils: Normal accommodation - ENT ENT exam: Normal exam, Mucous membranes moist, Normal external ear exam, Normal orophraynx Ear exam: Normal external inspection. negative: External canal tenderness Nasal Exam: Normal inspection. negative: Discharge, Sinus tenderness Mouth exam: Normal external inspection, Tongue normal Teeth exam: Normal inspection. negative: Dental caries Throat exam: Normal inspection. negative: Tonsillar erythema, Tonsillar exudate - Neck Neck exam: Normal inspection, Full ROM. negative: Tenderness - Respiratory Respiratory exam: Normal lung sounds bilaterally. negative: Respiratory distress - Cardiovascular Cardiovascular Exam: Regular rate, Normal rhythm, Normal heart sounds - GI/Abdominal GI/Abdominal exam: Soft, Normal bowel sounds. negative: Tenderness - Rectal Rectal exam: Deferred - exam: Deferred - Extremities Extremities exam: Normal inspection, Full ROM, Normal capillary refill. negative: Tenderness - Back Back exam: Reports: Normal inspection, Full ROM. Denies: Muscle spasm, Rash noted, Tenderness - Neurological Neurological exam: Abnormal gait, Alert, CN II-XII intact, Oriented X3, Other ( geospatial information technologist slightly weak on right) - Psychiatric Psychiatric exam: Normal affect, Normal mood - Skin Skin exam: Dry, Intact, Normal color, Warm Stroke Assessment - NIH Stroke Scale 1a. Level of Consciousness: (0) Alert 1b. LOC Questions: (0) Answers Correctly 1c. LOC Commands: (0) Performs Tasks Correctly 2. Best Gaze: (0) Normal 3. Visual: (0) No Visual Loss 4. Facial Palsy: (0) Normal Symmetrical Movement 5a. Motor Arm Left: (0) No Drift 5b. Motor Arm Right: (1) Drift 6a. Motor Leg Left: (0) No Drift 6b. Motor Leg Right: (0) No Drift 7. Limb Ataxia: (0) Absent 8. Sensory: (0) Normal 9. Best Language: (0) No Aphasia 10. Dysarthria: (0) Normal 11. Extinction/Inattention: (0) No Abnormality NIH Stoke Scale Total: 1 Course Vital Signs 07/19/18 15:15 Temperature 97.7 F Pulse Rate 81 Respiratory 20 Rate Blood Pressure 170/91 Pulse Ox 99 - Reevaluation(s) Reevaluation #1: 07/19/18 16:35 pt has an ich in the l parietal area that is 2.6 x 2.6 x3.3. it is circular and suspicious for mets. it has surrounding edema 07/19/18 16:41 d/w dr leon who still wanted vit k given and dr echeverria who suggested 2.5 in 100 over an hour, inr is 1.8 but pt has active bleeding Reevaluation #2: 07/19/18 16:48 pt still stable Medical Decision Making - Lab Data Result diagrams: 07/19/18 15:21 07/19/18 15:21 Critical Care Time Critical Care Time: Yes Total Critical Care Time: 90 Disposition Disposition: Transfer Clinical Impression: ICH (intracerebral hemorrhage) Qualifiers: Intracerebral hemorrhage etiology: nontraumatic Cerebral hemorrhage location: cerebral hemisphere, unspecified portion Laterality: left Qualified Code(s): I61.2 - Nontraumatic intracerebral hemorrhage in hemisphere, unspecified Disposition: Acute Care Hospital Transfer Transfer To: [facility] Reason For Transfer: ICH Accepting Physician: rosie leon and juwan Time Discussed w/Accepting Physician: 16:48 Forms: Patient Portal Access Quality - Quality Measures Quality Measures: N/A - Blood Pressure Screening Does Patient Have Any of the Following: Active Dx of HTN Blood Pressure Classification: Hypertensive Reading Systolic Measurement: 170 Diastolic Measurement: 91 Screening for High Blood Pressure: Patient Exclusion, Hx of HTN [[id number]]
[2018-07-19 15:54] LABS: INR 1.8; PROTHROMBIN TIME (PATIENT) 18.3 SECONDS (9.5-12.1)
[2018-07-19 15:55] LABS: BLOOD UREA NITROGEN 10 mg/dL (8-23); CREATININE 0.5 mg/dL (0.5-0.9); EST GLOMERULAR FILTRATION RATE > 60 mL/min
[2018-07-19 15:58] LABS: GLUCOSE,RANDOM 133 mg/dL (74-109)
[2018-07-19] MEDS ORDERED: DEXAMETHASONE SOD PHOSPHATE 10MG/ML VIAL IVP ONE (16:21)
[2018-07-19] MEDS ORDERED: PHYTONADIONE IVPB ONE (16:34)
[2018-07-19] MEDS ORDERED: SODIUM CHLORIDE 0.9% IVPB ONE (16:34)
[2018-07-19] MEDS ORDERED: MORPHINE SULFATE 10 MG/ML VIAL IVP ONE (16:53)
--- NOTE | 2018-07-22 13:36 | CT SCAN REPORT ---
EXAM: HEAD CT HISTORY: POSSIBLE STROKE, NEURO ALERT, FLUTTERING AND NUMBNESS IN RIGHT ARM AND A SPOT IN HER RIGHT EYE. TECHNIQUE: Axial CT scan of the head was performed without IV contrast. Comparison: No prior head CT with which to compare. FINDINGS: There is a slightly oval heterogeneous, but overall relatively hyperdense mass in the left parietal lobe measuring approximately 2.6 cm in AP x 2.6 cm in transverse diameters and having a craniocaudal dimension of about 3.3 cm. This hyperdensity is consistent with acute intracranial hemorrhage, but there is also adjacent low attenuation suggesting vasogenic edema. This could be hemorrhaging to a pre-existing mass and correlation with any known malignancy or other known intracranial lesion is suggested. Elsewhere no appearance to suggest acute intracranial hemorrhage identified. There is mild generalized atrophy with some chronic appearing deep white matter changes. There is a small, but slightly more prominent low attenuation focus in the right parietal lobe far superiorly which could be a small ischemic focus or a small amount of vasogenic edema associated with a very small non-recognizable mass. Follow-up brain MRI with contrast might be useful for further evaluation. There is no midline shift apparent. No depressed calvarial fracture is evident. IMPRESSION: 1. SINGLE SLIGHTLY OVAL HETEROGENEOUS, BUT OVERALL RELATIVELY HYPERDENSE "MASS " IN THE LEFT PARIETAL LOBE CONSISTENT WITH INTRAPARENCHYMAL HEMORRHAGE. SOME ADJACENT LOW ATTENUATION PROBABLY REPRESENTING EDEMA AND COULD RECOMMEND VASOGENIC EDEMA. THE POSSIBILITY OF AN UNDERLYING LESION IS RAISED. 2. GENERALIZED ATROPHY WITH CHRONIC APPEARING DEEP WHITE MATTER CHANGES. 3. ADDITIONAL SMALL LOW ATTENUATION FOCUS HIGH IN THE RIGHT PARIETAL REGION COULD BE A SMALL ISCHEMIC FOCUS OR A SMALL AMOUNT OF VASOGENIC EDEMA FROM A SMALL NON-RECOGNIZABLE UNDERLYING LESION WELL. 4. NO MIDLINE SHIFT EVIDENT, BUT PARTICULARLY ON THE CORONAL IMAGES THERE PROBABLY IS SOME LOCALIZED MASS EFFECT WITH SOME DEPRESSION OF THE POSTERIOR ASPECT OF THE LATERAL VENTRICLE ON THE LEFT COMPARED WITH THE RIGHT. 5. FOLLOW-UP WITH MRI WITH IV CONTRAST WOULD PROBABLY BE USEFUL FOR FURTHER EVALUATION, PARTICULARLY TO EVALUATE FOR ADDITIONAL FOCI TO SUGGEST UNDERLYING METASTATIC DISEASE, IF NOT CONTRAINDICATED. JOB NUMBER: [id number] [facility]
== END 2018-07-19 17:30 | disposition short-term general hospital (02) ==
LOC: ER 15:09
DX: I61.2 Nontraumatic intracerebral hemorrhage in hemisphere, unspecified (principal); R20.0 Anesthesia of skin; R42 Dizziness and giddiness; M62.81 Muscle weakness (generalized); J44.9 Chronic obstructive pulmonary disease, unspecified; I10 Essential (primary) hypertension; G20 Parkinson's disease; C34.90 Malignant neoplasm of unspecified part of unspecified bronchus or lung; F17.210 Nicotine dependence, cigarettes, uncomplicated; Z79.01 Long term (current) use of anticoagulants; Z85.3 Personal history of malignant neoplasm of breast
CPT/HCPCS: 99291 ×2; 96365; 96375; 85025; 85610; 80048; 70450; 93005; 93010; J1100; J2270